=== PATIENT | male | born 1935 | race Caucasian/White ===

== ENCOUNTER 2018-12-01 18:48 | Emergency (ER) | payer OTHER ==
[~2018-12-01] VITALS: Ht 157.5 cm; Wt 54.0 kg
[2018-12-02] MEDS ORDERED: MOBIC15 MG PO (01:17)
== END 2018-12-02 01:19 | disposition home or self-care (01) ==
LOC: ER 18:48
DX: S43.82XA Sprain of other specified parts of left shoulder girdle, initial encounter (principal); S20.222A Contusion of left back wall of thorax, initial encounter; S00.03XA Contusion of scalp, initial encounter; W18.09XA Striking against other object with subsequent fall, initial encounter; Y93.89 Activity, other specified; Y92.013 Bedroom of single-family (private) house as the place of occurrence of the external cause; Y99.8 Other external cause status

== ENCOUNTER 2018-12-26 09:39 | Emergency (ER) | payer OTHER ==
[~2018-12-26] VITALS: Ht 157.5 cm; Wt 52.2 kg
[~2018-12-26 09:39] MED LIST: MOBIC15 MG PO
[2018-12-26] MEDS ORDERED: ZIPSOR25 MG PO (09:56)
== END 2018-12-26 14:02 | disposition home or self-care (01) ==
LOC: ER 09:39
DX: K29.60 Other gastritis without bleeding (principal)

== ENCOUNTER 2020-06-07 08:20 | Emergency (ER) | payer OTHER ==
[~2020-06-07] VITALS: Ht 157.5 cm; Wt 49.9 kg
[~2020-06-07 08:20] MED LIST changes: +ZIPSOR25 MG PO
== END 2020-06-07 13:10 | disposition home or self-care (01) ==
LOC: ER 08:20
DX: M25.532 Pain in left wrist (principal)